=== PATIENT | male | born 1995 | race Caucasian/White ===

== ENCOUNTER 2022-05-27 21:49 | Emergency (ER) | payer BC ==
[~2022-05-27] VITALS: Ht 188 cm; Wt 127.3 kg
[2022-05-27] MEDS ORDERED: ACET-683 PO (21:55)
[2022-05-28 01:03] VITALS: BP 138/87
== END 2022-05-28 01:03 | disposition home or self-care (01) ==
LOC: M ED 21:49
DX: R22.42 Localized swelling, mass and lump, left lower limb (principal)